=== PATIENT | male | born 1940 | race Caucasian/White ===

== ENCOUNTER 2017-05-17 17:39 | Emergency (ER) | payer MEDICARE ==
[~2017-05-17] VITALS: Ht 175.3 cm; Wt 77.2 kg
[~2017-05-17 17:39] MED LIST: COLC1TAB15 PO; ENAL10TA PO; REST30CA PO
[2017-05-17 17:44] VITALS: BP 125/61; PULSE 49; RESP 16; TEMP 97.7; O2SAT 100
[2017-05-17] MEDS ORDERED: KETOROLAC TROMETHAMINE 60 MG/2 ML (IM) VIAL IM ONE (18:15)
[2017-05-17] MEDS ORDERED: ROBA500T PO (18:29)
--- NOTE | 2017-05-17 18:29 | PD ---
HPI Chief Complaint: Musculoskeletal Complaint Time Seen by Provider: 18:02 Travel History International Travel<30 days: No Contact w/Intl Traveler<30days: No Traveled to known affect area: No History of Present Illness HPI 76-year-old male presents emergency department for evaluation of left back and buttocks pain 1 week. Patient denies injury. Patient reports similar pain in the opposite side several years ago. He believes this may have been sciatica. He denies numbness/tingling/weakness in the leg. No incontinence, fever, chills , saddle anesthesia. No aggravating or alleviating factors. Severity 6 out of 10. PFSH Past Medical History Arthritis: Yes (KNEES) Asthma: No Autoimmune Disease: No Blood Disorders: No Anxiety: Yes Depression: No Heart Rhythm Problems: No Cancer: No Cardiovascular Problems: Yes (htn on meds) High Cholesterol: Yes Chemotherapy: No Chest Pain: No Congestive Heart Failure: No COPD: No Cerebrovascular Accident: No Diabetes: No Diminished Hearing: No Endocrine: No Gastrointestinal Disorders: Yes GERD: Yes Gout: Yes Genitourinary: No Headaches: No Hiatal Hernia: Yes (?) Heparin Induced Thrombocytopen: No Hypertension: Yes Immune Disorder: No Implanted Vascular Access Dvce: No Insomnia: Yes Kidney Stones: No Musculoskeletal: Yes Neurologic: Yes Psychiatric: No Reproductive: No Respiratory: No Immunizations Current: Yes Migraines: Yes (LONG TIME AGO) Pancreatitis: Yes Radiation Therapy: No Renal Failure: No Seizures: No Sickle Cell Disease: No Sleep Apnea: Yes (no cpap) Thyroid Disease: No Ulcer: No Tetanus Vaccination: < 5 Years Influenza Vaccination: Yes Past Surgical History Abdominal Surgery: Yes (ABDOMINAL HERNIA REPAIR, GALLBLADDER REMOVED) AICD: No Arteriovenous Shunt: No Cardiac Surgery: No Cholecystectomy: Yes Ear Surgery: No Endocrine Surgery: No Eye Surgery: No Genitourinary Surgery: Yes (TURP 12/2015) Gynecologic Surgery: No Insulin Pump: No Joint Replacement: Yes (RIGHT HIP REPLACEMENT) Neurologic Surgery: No Oral Surgery: Yes ( 19 teeth removed) Pacemaker: No Thoracic Surgery: No Other Surgery: Yes (UMBILICAL HERNIA REPAIR) Social History Alcohol Use: Yes (RARE) Tobacco Use: No Substance Use: No Allergies-Medications (Allergen,Severity, Reaction): Coded Allergies: *MDRO Multi-Drug Resistant Organism (Unverified Adverse Reaction, Severe, MRSA wounds ('06, '07) , 05/17/17) Celebrex (Verified Adverse Reaction, Intermediate, Nausea, 05/17/17) Reported Meds & Prescriptions Reported Meds & Active Scripts Active Robaxin (Methocarbamol) 500 Mg Tab 500 Mg PO TID PRN Reported Enalapril (Enalapril Maleate) 10 Mg Tab 10 Mg PO BID Restoril (Temazepam) 30 Mg Cap 30 Mg PO HS PRN Review of Systems Except as stated in HPI: all other systems reviewed are Neg General / Constitutional: No: Fever Eyes: No: Visual changes HENT: No: Headaches Cardiovascular: No: Chest Pain or Discomfort Respiratory: No: Shortness of Breath Gastrointestinal: No: Abdominal Pain Genitourinary: No: Dysuria Skin: No Rash Neurologic: No: Weakness Physical Exam Narrative GENERAL: Well-nourished, well-developed patient. SKIN: Focused skin assessment warm/dry. HEAD: Normocephalic. EYES: No scleral icterus. No injection or drainage. NECK: Supple, trachea midline. No JVD or lymphadenopathy. CARDIOVASCULAR: Regular rate and rhythm without murmurs, gallops, or rubs. RESPIRATORY: Breath sounds equal bilaterally. No accessory muscle use. GASTROINTESTINAL: Abdomen soft, non-tender, nondistended. MUSCULOSKELETAL: No cyanosis, or edema. 5 out of 5 strength in lower cavities. Dorsiflex and plantar flexion intact. Normal sensation. BACK: No obvious deformity. No CVA tenderness. Tender to palpation over the left SI joint. Data Data Last Documented VS Vital Signs Date Time Temp Pulse Resp B/P Pulse Ox O2 Delivery O2 Flow Rate FiO2 05/17/17 17:44 97.7 49 16 125/61 100 Orders Ketorolac Inj (Toradol Inj) (05/17/17 18:15) [facility] Medical Decision Making Medical Screen Exam Complete: Yes Emergency Medical Condition: Yes Differential Diagnosis Sciatica, lumbar strain, SI joint pain Narrative Course 76 old male with one-week history of nontraumatic left low back and buttocks pain. Patient denies fever, chills, incontinence, saddle anesthesia. Patient' s physical exam is reassuring patient has mild tenderness over the left SI joint. He has a normal neurologic exam. Patient is given a shot of Toradol emergency room he will be discharged home with prescription for muscle relaxers and instructed to take OTC Motrin. Patient agrees to plan Diagnosis Primary Impression: Sciatica Qualified Code: M54.32 - Sciatica of left side Referrals: Primary Care Physician Additional Instructions: Take [id number] Motrin 600-800 mg by mouth every 6-8 hours as needed for pain. Take the muscle relaxer as prescribed. Follow-up with your primary care doctor for recheck this week. Return to emergency department if he developed new or worsening symptoms. Scripts Methocarbamol (Robaxin)500 Mg [id number] Mg PO TID PRN (MUSCLE SPASM) #12 TAB Prov:Zully Cummings 05/17/17 Disposition: 01 DISCHARGE HOME Condition: Stable Zully Cummings May 17, 2017 18:29
== END 2017-05-17 18:50 | disposition home or self-care (01) ==
LOC: PHEFT 17:39
DX: M54.32 Sciatica, left side (principal)
CPT/HCPCS: 96372; 99284; J1885

== ENCOUNTER 2017-09-26 08:55 | Emergency (ER) | payer MEDICARE ==
[~2017-09-26] VITALS: Ht 175.3 cm; Wt 77.0 kg
[~2017-09-26 08:55] MED LIST changes: -COLC1TAB15 PO; +ROBA500T PO
[2017-09-26 09:06] VITALS: BP 135/61; PULSE 64; RESP 16; TEMP 98; O2SAT 99
[2017-09-26] MEDS ORDERED: ROBA500T PO (09:42)
--- NOTE | 2017-09-26 09:43 | PD ---
HPI Chief Complaint: Pain: Acute or Chronic Time Seen by Provider: 09:30 Travel History International Travel<30 days: No Contact w/Intl Traveler<30days: No Traveled to known affect area: No History of Present Illness HPI 76-year-old male presents emergency department for evaluation of left back and buttocks pain 1 week. Patient denies injury. Patient reports similar pain in the past with sciatica flares. He denies numbness/tingling/weakness in the leg. No incontinence, fever, chills, saddle anesthesia. No aggravating or alleviating factors. Severity 6 out of 10. PFSH Past Medical History Hx Anticoagulant Therapy: No Arthritis: Yes (Knees) Asthma: No Autoimmune Disease: No Blood Disorders: No Anxiety: Yes Depression: No Heart Rhythm Problems: No Cancer: No Cardiovascular Problems: Yes (HTN) High Cholesterol: Yes Chemotherapy: No Chest Pain: No Congestive Heart Failure: No COPD: No Cerebrovascular Accident: No Diabetes: No Diminished Hearing: No Endocrine: No Gastrointestinal Disorders: Yes GERD: Yes Gout: Yes Genitourinary: No Headaches: No Hiatal Hernia: Yes Heparin Induced Thrombocytopen: No Hypertension: Yes Immune Disorder: No Implanted Vascular Access Dvce: No Insomnia: Yes Kidney Stones: No Musculoskeletal: Yes Neurologic: Yes Psychiatric: No Reproductive: No Respiratory: No Immunizations Current: Yes Migraines: Yes Pancreatitis: Yes Radiation Therapy: No Renal Failure: No Seizures: No Sickle Cell Disease: No Sleep Apnea: Yes (No CPAP) Thyroid Disease: No Ulcer: No Influenza Vaccination: No Past Surgical History Abdominal Surgery: Yes (Hernia repair ) AICD: No Arteriovenous Shunt: No Cardiac Surgery: No Cholecystectomy: Yes Ear Surgery: No Endocrine Surgery: No Eye Surgery: No Genitourinary Surgery: Yes (TURP ) Gynecologic Surgery: No Insulin Pump: No Joint Replacement: Yes (Rt. hip ) Neurologic Surgery: No Oral Surgery: Yes (19 teeth extracted ) Pacemaker: No Thoracic Surgery: No Other Surgery: Yes (UMBILICAL HERNIA REPAIR) Social History Alcohol Use: No Tobacco Use: No Substance Use: No Allergies-Medications (Allergen,Severity, Reaction): Coded Allergies: *MDRO Multi-Drug Resistant Organism (Unverified Adverse Reaction, Severe, MRSA wounds ('06, '07) , 09/26/17) celecoxib (Unverified Adverse Reaction, Intermediate, Nausea, 09/26/17) Reported Meds & Prescriptions Reported Meds & Active Scripts Active Reported Enalapril (Enalapril Maleate) 10 Mg Tab 10 Mg PO BID Restoril (Temazepam) 30 Mg Cap 30 Mg PO HS PRN Review of Systems Except as stated in HPI: all other systems reviewed are Neg General / Constitutional: No: Fever Physical Exam Narrative GENERAL: Alert well-appearing male in no distress SKIN: Warm and dry. HEAD: Atraumatic. Normocephalic. EYES: No injection or drainage. CARDIOVASCULAR: Regular rate and rhythm. RESPIRATORY: No accessory muscle use. Clear to auscultation. Breath sounds equal bilaterally. GASTROINTESTINAL: Abdomen soft, non-tender, nondistended. MUSCULOSKELETAL: Extremities without clubbing, cyanosis, or edema. No obvious deformities. No bony tenderness of the left hip or pelvis NEUROLOGICAL: Awake and alert. No obvious cranial nerve deficits. Motor grossly within normal limits. Dorsiflex and plantarflex intact. Five out of 5 muscle strength in the arms and legs. Normal speech. Ambulating with a steady gait. BACK: No CVA tenderness. No rash. No point tenderness on palpation of the spine. TTP left buttocks region the SI joint. PSYCHIATRIC: Appropriate mood and affect; insight and judgment normal. Data Data Last Documented VS Vital Signs Date Time Temp Pulse Resp B/P (MAP) Pulse Ox O2 Delivery O2 Flow Rate FiO2 09/26/17 09:06 98.0 64 16 135/61 (85) 99 MDM Medical Decision Making Medical Screen Exam Complete: Yes Emergency Medical Condition: Yes Differential Diagnosis Sciatica, lumbar strain, fracture Narrative Course 77 year old male with nontraumatic left buttocks and leg pain times one week. Patient has history of sciatica. He reports the pain is similar. His physical exam is reassuring. He has no bony tenderness. Ambulate with steady gait. Normal neurologic exam. He'll be treated for sciatica Diagnosis Primary Impression: Sciatica Qualified Codes: M54.32 - Sciatica, left side Referrals: Primary Care Physician Additional Instructions: Take [id number] Motrin 600 800 mg every 6-8 hours as needed for pain. Take a muscle relaxer as prescribed. Avoid heavy lifting or strenuous activity. Follow-up with her doctor or return if he developed new or worsening symptoms. Scripts Methocarbamol (Robaxin) 500 Mg Tab 500 MG PO TID Y for MUSCLE SPASM, #12 TAB Prov: Leedy,Zully N MANAGING COGNITIVE ENGINEER 09/26/17 Disposition: 01 DISCHARGE HOME Condition: Stable Zully Cummings Sep 26, 2017 09:42
[2017-09-26] MEDS ORDERED: KETOROLAC TROMETHAMINE 60 MG/2 ML (IM) VIAL IM ONE (09:45)
[2017-09-27] MEDS ORDERED: TRAM50 PO (10:55)
== END 2017-09-26 09:56 | disposition home or self-care (01) ==
LOC: PHEFT 08:55
DX: M54.32 Sciatica, left side (principal)
CPT/HCPCS: 96372; 99284; J1885

== ENCOUNTER 2017-09-27 09:23 | Emergency (ER) | payer MEDICARE ==
[~2017-09-27] VITALS: Ht 175.3 cm; Wt 76.5 kg
[2017-09-27 09:38] VITALS: BP 137/61; PULSE 59; RESP 16; TEMP 97.5; O2SAT 100
[2017-09-27] MEDS ORDERED: TRAM50 PO (10:55)
--- NOTE | 2017-09-27 10:55 | PD ---
HPI Chief Complaint: Pain: Acute or Chronic Time Seen by Provider: 10:35 Travel History International Travel<30 days: No Contact w/Intl Traveler<30days: No Traveled to known affect area: No History of Present Illness HPI 77-year-old male here with sciatica pain which is unrelieved by ibuprofen and Robaxin. Patient was seen yesterday in the emergency room physician complaint. He reports the pain is localized to the left buttocks and radiates down the leg. He denies paresthesia or weakness of the extremity. He denies fever, chills, incontinence, saddle anesthesia, paresthesia or weakness of the extremity. He reports this pain has been intermittent for the last 6-8 months. The pain is usually relieved by ibuprofen. He denies recent injury or trauma. He reports he's been given Ultram in the past by his PCP for this pain PFSH Past Medical History Hx Anticoagulant Therapy: No Arthritis: Yes (Knees) Asthma: No Autoimmune Disease: No Blood Disorders: No Anxiety: Yes Depression: No Heart Rhythm Problems: No Cancer: No Cardiovascular Problems: Yes (htn on meds) High Cholesterol: Yes Chemotherapy: No Chest Pain: No Congestive Heart Failure: No COPD: No Cerebrovascular Accident: No Diabetes: No Diminished Hearing: No Endocrine: No Gastrointestinal Disorders: Yes GERD: Yes Gout: Yes Genitourinary: No Headaches: No Hiatal Hernia: Yes Heparin Induced Thrombocytopen: No Hypertension: Yes Immune Disorder: No Implanted Vascular Access Dvce: No Insomnia: Yes Kidney Stones: No Musculoskeletal: Yes Neurologic: Yes Psychiatric: No Reproductive: No Respiratory: No Immunizations Current: Yes Migraines: Yes Pancreatitis: Yes Radiation Therapy: No Renal Failure: No Seizures: No Sickle Cell Disease: No Sleep Apnea: Yes Thyroid Disease: No Ulcer: No Tetanus Vaccination: < 5 Years Influenza Vaccination: No Past Surgical History Abdominal Surgery: Yes ( abd Hernia repair ) AICD: No Arteriovenous Shunt: No Cardiac Surgery: No Cholecystectomy: Yes Ear Surgery: No Endocrine Surgery: No Eye Surgery: No Genitourinary Surgery: Yes (TURP ) Gynecologic Surgery: No Insulin Pump: No Joint Replacement: Yes (Rt. hip ) Neurologic Surgery: No Oral Surgery: Yes (19 teeth extracted ) Pacemaker: No Thoracic Surgery: No Other Surgery: Yes (UMBILICAL HERNIA REPAIR) Social History Alcohol Use: No Tobacco Use: No (teenager smoked cigs) Substance Use: No Allergies-Medications (Allergen,Severity, Reaction): Coded Allergies: *MDRO Multi-Drug Resistant Organism (Unverified Adverse Reaction, Severe, MRSA wounds ('06, '07) , 09/27/17) celecoxib (Unverified Adverse Reaction, Intermediate, Nausea, 09/27/17) Reported Meds & Prescriptions Reported Meds & Active Scripts Active Ultram (Tramadol HCl) 50 Mg Tab 50 Mg PO Q6H PRN Robaxin (Methocarbamol) 500 Mg Tab 500 Mg PO TID PRN Reported Enalapril (Enalapril Maleate) 10 Mg Tab 10 Mg PO BID Restoril (Temazepam) 30 Mg Cap 30 Mg PO HS PRN Review of Systems Except as stated in HPI: all other systems reviewed are Neg General / Constitutional: No: Fever Eyes: No: Visual changes HENT: No: Headaches Cardiovascular: No: Chest Pain or Discomfort Respiratory: No: Shortness of Breath Physical Exam Narrative GENERAL: Alert well-appearing male. He is ambulating in the emergency room without difficulty. SKIN: Warm and dry. HEAD: Normocephalic. EYES: No scleral icterus. No injection or drainage. NECK: Supple, trachea midline. No JVD or lymphadenopathy. CARDIOVASCULAR: Regular rate and rhythm without murmurs, gallops, or rubs. RESPIRATORY: Breath sounds equal bilaterally. No accessory muscle use. GASTROINTESTINAL: Abdomen soft, non-tender, nondistended. MUSCULOSKELETAL: No cyanosis, or edema. Normal strength and sensation of the lower extremities. Normal sensation. Dorsiflex and plantarflex intact. 2+ dorsal pedis pulses BACK: Nontender without obvious deformity. No CVA tenderness. Reported pain in the left gluteal area which radiates down the leg. The hip/pelvis/femur is nontender. Data Data Last Documented VS Vital Signs Date Time Temp Pulse Resp B/P (MAP) Pulse Ox O2 Delivery O2 Flow Rate FiO2 09/27/17 09:51 16 09/27/17 09:38 97.5 59 137/61 (86) 100 MDM Medical Decision Making Medical Screen Exam Complete: Yes Emergency Medical Condition: Yes Differential Diagnosis Sciatica, lumbar strain, SI joint pain Narrative Course 77 -year-old male with history of sciatica here with pain in the left buttocks radiating down the leg. He reports pain similar to his previous episodes of sciatica. He was seen yesterday discharged home with ibuprofen and Robaxin. He reports these medications are not alleviating his pain. He is requesting Ultram which she has been prescribed in the past for sciatic flares. He is well -appearing. His vital signs are stable. He has a normal neurologic exam. Patient be prescribed shortness of Ultram and instructed to follow up with his PCP Diagnosis Primary Impression: Sciatica Qualified Codes: M54.32 - Sciatica, left side Referrals: Primary Care Physician Additional Instructions: Take the medication as prescribed. Follow-up the primary doctor. Return to emergency department he developed new or worsening symptoms. Scripts Tramadol (Ultram) 50 Mg Tab 50 MG PO Q6H Y for PAIN, #12 TAB 0 Refills Prov: Kaitlyn Carter DO 09/27/17 Disposition: 01 DISCHARGE HOME Condition: Stable Zully Cummings Sep 27, 2017 10:55
== END 2017-09-27 11:12 | disposition home or self-care (01) ==
LOC: PHEFT 09:23
DX: M54.32 Sciatica, left side (principal); I10 Essential (primary) hypertension; E78.00 Pure hypercholesterolemia, unspecified; G47.30 Sleep apnea, unspecified; Z87.39 Personal history of other diseases of the musculoskeletal system and connective tissue; Z86.59 Personal history of other mental and behavioral disorders; Z86.79 Personal history of other diseases of the circulatory system; Z87.19 Personal history of other diseases of the digestive system; Z86.69 Personal history of other diseases of the nervous system and sense organs
CPT/HCPCS: 99283